=== PATIENT | male | born 1950 | race Caucasian/White ===

== ENCOUNTER 2020-09-08 12:56 | Emergency (ER) | payer MEDICARE ==
--- NOTE | 2020-09-08 13:34 | EDM.PDOC ---
ED HPI GENERAL MEDICAL PROBLEM - General Chief Complaint: General Stated Complaint: RIGHT RIB PAIN FELL Time Seen by Provider: 09/08/20 13:27 Source of Information: Reports: Patient, RN Notes Reviewed History Limitations: Reports: No Limitations - History of Present Illness INITIAL COMMENTS - FREE TEXT/NARRATIVE: 70-year-old gentleman presents emergency department today after a fall at home, he slipped going down the stairs missed the last step landed predominantly on his right side of his chest now is experiencing pain, did not hit his head no loss of consciousness denies any other injury - Related Data Allergies Allergy/AdvReac Type Severity Reaction Status Date / Time ketorolac [From Toradol] AdvReac Nausea Verified 09/08/20 13:16 metformin AdvReac Nausea Verified 09/08/20 13:16 morphine AdvReac Nausea Verified 09/08/20 13:16 tramadol AdvReac Nausea Verified 09/08/20 13:16 Home Meds: Home Meds Aspirin [Halfprin] 81 mg PO DAILY 09/08/20 [History] Ferrous Sulfate, Dried [Iron] 160 mg PO TID 09/08/20 [History] Insulin Glargine,Hum.Rec.Anlog [Lantus Solostar] 20 unit SQ DAILY 09/08/20 [History] Pravastatin [Pravachol] 40 mg PO BEDTIME 09/08/20 [History] carvediloL [Carvedilol] 12.5 mg PO BID 09/08/20 [History] lisinopriL [Lisinopril] 40 mg PO BID 09/08/20 [History] Past Medical History HEENT History: Reports: Impaired Vision Cardiovascular History: Reports: CAD, High Cholesterol, Hypertension, SC, Stents Musculoskeletal History: Reports: Arthritis Endocrine/Metabolic History: Reports: Diabetes, Type II Hematologic History: Reports: Blood Transfusion(s), Iron Deficiency Dermatologic History: Reports: Other (See Below) Other Dermatologic History: hx david bite - Infectious Disease History Infectious Disease History: Reports: Measles, Shingles - Past Surgical History Head Surgeries/Procedures: Reports: None HEENT Surgical History: Reports: Cataract Surgery Cardiovascular Surgical History: Reports: Coronary Artery Stent Endocrine Surgical History: Reports: None Musculoskeletal Surgical History: Reports: Amputation, Shoulder Surgery, Other (See Below) Other Musculoskeletal Surgeries/Procedures:: toes bilat feet Dermatological Surgical History: Reports: None Social & Family History - Tobacco Use Tobacco Use Status *Q: Former Tobacco User Used Tobacco, but Quit: Yes Month/Year Tobacco Last Used: 06/2020 Second Hand Smoke Exposure: No - Caffeine Use Caffeine Use: Reports: Coffee - Recreational Drug Use Recreational Drug Use: No ED ROS GENERAL - Review of Systems Review Of Systems: See Below Constitutional: Reports: No Symptoms Respiratory: Reports: No Symptoms Cardiovascular: Reports: Chest Pain GI/Abdominal: Reports: No Symptoms ED EXAM, GENERAL - Physical Exam Exam: See Below Exam Limited By: No Limitations General Appearance: Alert, WD/WN, No Apparent Distress Respiratory/Chest: No Respiratory Distress, Lungs Clear, Normal Breath Sounds, No Accessory Muscle Use, Other (Tenderness along the posterior aspect lower rib region right side) Cardiovascular: Regular Rate, Rhythm, No Murmur Course - Vital Signs Last Recorded V/S: Last Vital Signs Temp 97.6 F 09/08/20 13:28 Pulse 73 09/08/20 13:28 Resp 18 09/08/20 13:28 BP 192/67 H 09/08/20 13:28 Pulse Ox 99 09/08/20 13:28 Departure - Departure Time of Disposition: 13:33 Disposition: Home, Self-Care 01 Condition: Fair Clinical Impression: Contusion, chest wall Qualifiers: Encounter type: initial encounter Laterality: right Qualified Code(s): S20.211A - Contusion of right front wall of thorax, initial encounter - Discharge Information Instructions: Contusion, [id number] Referrals: PCP,None [Primary Care Provider] - Additional Instructions: Try the Percocet as needed for pain control, recommend not driving on this medication, please follow-up with your primary care upon return home Sepsis Event Note (ED) - Evaluation Sepsis Screening Result: No Definite Risk - Focused Exam Vital Signs: Vital Signs Temp Pulse Resp BP Pulse Ox 09/08/20 13:28 97.6 F 73 18 192/67 H 99 09/08/20 13:27 97.6 F 73 18 192/67 H 99 - Assessment/Plan Plan: Assessment Acuity = acute Site and laterality = rib pain chest wall contusion Etiology = secondary to fall Manifestations = none Location of injury = Home Lab values = none Plan Prescription written for Percocet 5/325 1 tab p.o. 3 times daily as needed total #6 have him follow-up with his primary care upon return home if not better This note was dictated using [employer] voice recognition software please call with any questions on syntax or grammar.
== END 2020-09-08 13:39 | disposition home or self-care (01) ==
LOC: JP.ED 12:56
DX: S20.211A Contusion of right front wall of thorax, initial encounter (principal); I25.10 Atherosclerotic heart disease of native coronary artery without angina pectoris; E78.00 Pure hypercholesterolemia, unspecified; I10 Essential (primary) hypertension; I25.2 Old myocardial infarction; Z95.5 Presence of coronary angioplasty implant and graft; M19.90 Unspecified osteoarthritis, unspecified site; Z88.6 Allergy status to analgesic agent; Z88.8 Allergy status to other drugs, medicaments and biological substances; Z88.5 Allergy status to narcotic agent; Z79.82 Long term (current) use of aspirin; Z79.4 Long term (current) use of insulin; Z87.891 Personal history of nicotine dependence; W10.9XXA Fall (on) (from) unspecified stairs and steps, initial encounter; Y92.009 Unspecified place in unspecified non-institutional (private) residence as the place of occurrence of the external cause
CPT/HCPCS: 99283